=== PATIENT | female | born 1965 | race Hispanic/Latino ===

== ENCOUNTER → 2024-10-27 | Day surgery (SDC) | payer OTHER ==
[~2024-10-27] MED LIST: ALTOPREV40 MG PO; BENICAR20 MG PO; GLIPIZIDE ER5 MG PO; HYDROCHLOROTHIA25 MG PO; LIDOCAINE HCL 2% LOCAL INJ 5 ML SDV VIAL INJ ONE; LYRICA75 MG PO; MIDAZOLAM HCL 2 MG/2 ML VIAL ONE; PROPOFOL IV EMULSION 10 MG/ML 20 ML VIAL ONE
[2024-10-27] MEDS: LACTATED RINGER'S 1,000 ML ONE (10:13)
[2024-10-27 12:04] VITALS: TEMP 97.4
[2024-10-27 12:20] VITALS: BP 134/79; PULSE 90; RESP 16; O2SAT 98
== END | disposition home or self-care (01) ==
LOC: OR 09:36
PROVIDERS: ATTEND Internal Medicine Gastroenterology
DX: Z12.11 Encounter for screening for malignant neoplasm of colon (principal); D12.0 Benign neoplasm of cecum; D12.2 Benign neoplasm of ascending colon; D12.3 Benign neoplasm of transverse colon; D12.4 Benign neoplasm of descending colon; K62.5 Hemorrhage of anus and rectum; K64.8 Other hemorrhoids; E11.9 Type 2 diabetes mellitus without complications; E78.5 Hyperlipidemia, unspecified; I10 Essential (primary) hypertension; N20.0 Calculus of kidney; Z79.84 Long term (current) use of oral hypoglycemic drugs; Z79.899 Other long term (current) drug therapy; Z68.41 Body mass index [BMI] 40.0-44.9, adult
CPT/HCPCS: 36415; 45384; 45385; 82948; 93005; J2003; J2250; J2704; J7121; 45378